=== PATIENT | male | born 1955 | race Caucasian/White ===

== ENCOUNTER 2020-02-24 09:02 | Day surgery (SDC) | payer OTHER ==
[~2020-02-24] VITALS: Ht 175.3 cm; Wt 65.5 kg
[2020-02-24 09:16] LABS: HEMATOCRIT 47.9 % (42.0-54.0); HEMOGLOBIN 16.2 g/dL (13.5-17.5); MCH 30.3 pg (26.0-34.0); MCHC 33.8 g/dL (31.0-37.0); MCV 89.7 fL (80.0-100.0); RBC 5.34 10x6/uL (4.20-6.10); RDW 14.4 % (11.5-14.5); WBC 5.3 10x3/uL (4.8-10.8)
[2020-02-24 09:25] LABS: ANION GAP 10.9 mmol/L (8-16); CARBON DIOXIDE 29.7 mmol/L (21.0-32.0); CREATININE - SERUM 1.2 mg/dL (0.6-1.3); INR 0.99 (0.85-1.17); POTASSIUM - SERUM 3.6 mmol/L (3.5-5.1); PROTIME 13.1 SECONDS (11.6-15.0)
[2020-02-24 09:26] LABS: APTT 29.5 SECONDS (22.8-39.4)
[2020-02-24] MEDS ORDERED: IPRAT-ALBUT 0.5-3 ML UPD (09:56)
[2020-02-24] MEDS ORDERED: OMEPRAZOLE20 M1 PO (09:56)
[2020-02-24] MEDS ORDERED: SYMBICORT 16010.2 GM INH (09:57)
[2020-02-24] MEDS ORDERED: ALPHAGAN 0.2%5 ML EACH EYE (09:58)
[2020-02-24 10:00] VITALS: Ht 175.3 cm; Wt 65.5 kg
--- NOTE | 2020-02-24 15:22 | NUR ---
1415 PCXR HAS BEEN COMPLETED AND REPORT READY. DR. TONY HAS REVIEWED REPORT AND STATES THAT PT IS OK TO BE DISCHARGED HOME. DR TONY HAS SPOKEN TO PATIENT AFTER PROCEDURE AND REVIEWED HIS FINDINGS WITH THE PATIENT. 1430 PT CONTINUES TO HAVE LOWER ABDOMINAL PAIN BUT THE PAIN IS DECREASING AFTER PASSING MORE FLATUS. ABDOMEN IS SOFT AND IS NOT DISTENDED. 1436 IV DC'D. CATHETER TIP INTACT. NO BLEEDING AT SITE AFTER HOLDING PRESSURE. BANDAID APPLIED. REVIEWED DISCHARGE INSTRUCTIONS WITH PT WHO VOICES UNDERSTANDING OF INSTRUCTIONS.
--- NOTE | 2020-02-25 17:42 | OP ---
PATIENT NAME: HIPOLITO EM MEDICAL RECORD: [id number] :53 LOCATION:D.OPS ADMISSION DATE: SURGEON: JOE TONY MD DATE OF OPERATION: 02/24/2020 PREOPERATIVE DIAGNOSIS: Carcinoid of the rectum. 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 PROCEDURES: 1. Total colonoscopy to cecum. 2. Endoscopic mucosal resection, polypectomy times 1. 3. Endoscopic tattooing with submucosal Marly ink. 4. Hot biopsy forceps polypectomy times 1. 5. Endoscopic ablation of 2 colon polyps with the argon plasma buyer internship. SURGEON: Joe Tony MD MACHINE CRATER: None. BLOOD LOSS: Less than 5 cc. ANESTHESIA: IV sedation. COMPLICATIONS: None. ENDOSCOPIC COURSE: The patient was conveyed to the endoscopy suite electively on 02/24/2020. IV sedation was induced by anesthesia staff. The patient was placed in the Malin position. A digital rectal examination was performed. A colonoscope was inserted through the anus. It was easily advanced to the cecum. The prep was marginal. I slowly withdrew the endoscope. The pullback was greater than 45-minute pullback. I irrigated and aspirated extensively. I dragged the folds. I utilized normal imaging as well as narrow band imaging. Two minute polyps that were smaller than 5-mm were ablated with the argon plasma buyer internship utilizing the right colon setting in the forced mode. Another polyp which was somewhat pedunculated was removed in its entirety with the hot biopsy forceps polypectomy technique. This was a 1.2 cm polyp. I then identified what appeared to be the carcinoid which was at around 15 cm from the anus. I advanced a sclerotherapy needle. Submucosal injection of epinephrine was performed for post-procedure, hemostasis. I then advanced the same sclerotherapy needle and performed a submucosal injection of Eleview. I then took a snare and snared the top portion of the polyp and then the base of the polyp. Hemostasis was immediate. I then suctioned up the portions of the polyp into a suction trap. I then advanced a sclerotherapy needle and injected 5 cc of Marly ink submucosally right across from the Eleview. I then withdrew into the rectum. A retroflexed view was obtained in the rectum. I then unretroflexed the scope and removed it under direct vision. I will see the patient in my office in 2-3 weeks. His further therapy will be dictated by the pathology. I will be discussing his case with Dr. Mendoza. TRANSINT:[id number] Voice Confirmation ID: [id number] DOCUMENT ID: [id number] OPERATIVE REPORT [id number] HIPOLITO EM, JOE SOL at 1742 CC: Conner BELL MCDONNELL, BRYAN D MD and JOE MENDOZA [id number] DICTATION DATE: 02/24/20 1427 PLANER OFFBEARER: 02/24/20 [id number] [facility] 02/24/20 [place] [id number] [place] [id number]
== END 2020-02-24 14:56 | disposition home or self-care (01) ==
LOC: D.OPS 09:02
PROVIDERS: Anesthesiology; ATTEND Surgery
DX: D37.5 Neoplasm of uncertain behavior of rectum (principal); K21.9 Gastro-esophageal reflux disease without esophagitis; J84.9 Interstitial pulmonary disease, unspecified; K63.5 Polyp of colon